=== PATIENT | female | born 1995 | race African-American/Black ===

== ENCOUNTER 2017-07-02 09:45 | Emergency (ER) | payer OTHER ==
[~2017-07-02] VITALS: Ht 162.6 cm; Wt 86.2 kg
[2017-07-02 10:11] LABS: URINE SOURCE CLEAN CATCH
[2017-07-02 10:15] LABS: URINE APPEARANCE CLEAR; URINE BILIRUBIN NEG (NEG); URINE BLOOD 2+ (NEG); URINE COLOR YELLOW; URINE GLUCOSE NEG (NEG); URINE KETONE NEG (NEG); URINE LEUKOCYTE ESTERASE NEG (NEG); URINE NITRATE NEG (NEG); URINE PROTEIN NEG (NEG); URINE SPECIFIC GRAVITY 1.008 (1.003-1.035); URINE UROBILINOGEN 0.2 MG/DL (NEG)
[2017-07-02 10:17] LABS: CULTURE INDICATED? YES; URBCS1 AUWI 0-2 /[HPF] (0-2); URINE BACTERIA AUWI 1+ (NEGATIVE); URINE SQUAMOUS EPITHELIAL CELL OCC /[HPF]
== END 2017-07-02 11:07 | disposition home or self-care (01) ==
LOC: CFTX 09:45 → CED 09:45 → CFTX 10:44 → CED 10:44 → CFTX 11:07
DX: N90.7 Vulvar cyst (principal); J01.90 Acute sinusitis, unspecified
CPT/HCPCS: 81003; 84703; 87086; 87088; 87186; 99283